=== PATIENT | female | born 1955 | race African-American/Black ===

== ENCOUNTER 2019-02-12 15:10 | Emergency (ER) | payer MEDICARE, MEDICAID ==
[2019-02-12 16:39] LABS: #Eosinphils 0.2 thou/uL (0.0-0.7); #Lymphocytes 1.8 thou/uL (1.20-3.40); #Monocytes 0.4 thou/uL (0.11-0.59); #Neutrophils 3.3 thou/uL (1.40-6.50); %Basophils 0.3 % (0.0-1.0); %Monocytes 7.1 % (0.0-10.0); %Neutrophils 57.7 % (42.0-75.0); Hemoglobin 14.1 g/dL (12.0-16.0); Mean Corpuscular HGB CONC 32.9 g/dL (32.0-36.0); Mean Corpuscular Hemoglobin 31.2 pg (27.0-31.0); Mean Corpuscular Volume 94.7 fL (78.0-98.0); Mean Platelet Volume 8.1 fL (7.4-10.4); Platelet Count 196 thou/uL (130-400); RBC Distribution Width 12.7 % (11.5-14.5); Red Blood Cell (RBC) Count 4.53 mill/uL (4.20-5.40); White Blood Cell (WBC) Count 5.8 thou/uL (4.8-10.8)
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
--- NOTE | 2019-02-12 16:55 | RAD ---
XR Chest 1 View Portable History: [Dyspnea] Comparison: Chest radiograph 2016 Findings: The lungs are clear. No pneumothorax or effusion. Cardiac silhouette and mediastinal contou rs are within normal limits. Impression: No acute intrathoracic abnormality.
[2019-02-12 17:06] LABS: ALT (SGPT) 10 U/L (8-55); AST (SGOT) 13 U/L (5-34); Albumin 3.8 g/dL (3.4-4.8); Alkaline Phosphatase 72 U/L (40-150); Anion Gap 13 mmol/L (10-20); BUN (Urea Nitrogen) 17 mg/dL (9.8-20.1); Bilirubin, Total 0.2 mg/dL (0.2-1.2); CK (CPK) 108 U/L (29-168); Calc. Creatinine Clearance 0 mL/min (70-130); Calcium 9.2 mg/dL (7.8-10.44); Carbon Dioxide 20 mmol/L (23-31); Chloride 111 mmol/L (98-107); Estimated GFR-MDRD 80; Globulin 2.7 g/dL (2.4-3.5); Glucose 104 mg/dL (80-115); Potassium 4.1 mmol/L (3.5-5.1); Protein, Total 6.5 g/dL (6.0-8.3); Sodium 140 mmol/L (136-145)
--- NOTE | 2019-02-16 13:54 | EKG ---
Test Reason : Blood Pressure : / mmHG Vent. Rate : 060 BPM Atrial Rate : 060 BPM P-R Int : 164 ms QRS Dur : 082 ms QT Int : 430 ms P-R-T Axes : 052 -04 055 degrees QTc Int : 430 ms Normal sinus rhythm Normal ECG Confirmed by BRIAN WICK DO ([id number]), editor department EMY COURTNEY ([id number] on 02/16/2019 1:54:02 PM Referred By: Confirmed By:BRIAN WICK DO
== END 2019-02-12 18:14 | disposition home or self-care (01) ==
LOC: ERS 15:10
DX: M54.5 Low back pain (principal); M79.89 Other specified soft tissue disorders; E78.5 Hyperlipidemia, unspecified; I10 Essential (primary) hypertension; E66.9 Obesity, unspecified; Z79.82 Long term (current) use of aspirin; Z79.899 Other long term (current) drug therapy
CPT/HCPCS: 36415; 71045; 72100; 80053; 82550; 83880; 84484; 85025; 93005

== ENCOUNTER 2021-07-30 23:46 | Inpatient (IN) | payer MEDICARE, MEDICAID ==
[2021-07-30] MEDS ORDERED: Dextrose 50% Abboject 50 ML SYRINGE ONE (23:50)
[2021-07-31 00:28] LABS: #Eosinphils 0.1 thou/uL (0.0-0.7); #Lymphocytes 2.3 thou/uL (1.20-3.40); #Monocytes 0.4 thou/uL (0.11-0.59); #Neutrophils 3.1 thou/uL (1.40-6.50); %Basophils 0.2 % (0.0-1.0); %Eosinophils 2.3 % (0.0-10.0); %Lymphocytes 38.3 % (21.0-51.0); %Monocytes 7.3 % (0.0-10.0); %Neutrophils 51.9 % (42.0-75.0); Hemoglobin 13.3 g/dL (12.0-16.0); Mean Corpuscular HGB CONC 32.1 g/dL (32.0-36.0); Mean Corpuscular Hemoglobin 30.9 pg (27.0-31.0); Mean Corpuscular Volume 96.5 fL (78.0-98.0); Mean Platelet Volume 7.7 fL (7.4-10.4); Platelet Count 172 thou/uL (130-400); RBC Distribution Width 13.8 % (11.5-14.5); Red Blood Cell (RBC) Count 4.29 mill/uL (4.20-5.40)
[2021-07-31 00:42] LABS: ALT (SGPT) 11 U/L (8-55); AST (SGOT) 14 U/L (5-34); Albumin 3.6 g/dL (3.4-4.8); Alkaline Phosphatase 53 U/L (40-110); Anion Gap 12 mmol/L (10-20); BUN (Urea Nitrogen) 10 mg/dL (9.8-20.1); Bilirubin, Total 0.4 mg/dL (0.2-1.2); Calc. Creatinine Clearance 0 mL/min (70-130); Calcium 8.8 mg/dL (7.8-10.44); Carbon Dioxide 21 mmol/L (23-31); Chloride 109 mmol/L (98-107); Globulin 2.5 g/dL (2.4-3.5); Potassium 3.3 mmol/L (3.5-5.1); Protein, Total 6.1 g/dL (5.8-8.1); Sodium 139 mmol/L (136-145)
[2021-07-31 00:55] LABS: Glucose 117 mg/dL (80-115)
[2021-07-31 00:56] LABS: PTT 28.8 sec (22.9-36.1); Prothrombin Time 13.6 sec (12.0-14.7)
[2021-07-31 01:30] LABS: Acetaminophen Less than 6.0 mcg/mL (10.0-30.0); Alcohol Less than 10 mg/dL (Less than 10); Salicylate Less than 8.0 mg/dL (15.0-30.0)
[2021-07-31 01:56] LABS: Magnesium 1.8 mg/dL (1.6-2.6)
[2021-07-31 02:56] LABS: Bilirubin Negative (Negative); Blood, Urine Negative (Negative); Clarity Clear (Clear); Glucose, Urine (Dipstick) Normal (Negative); Ketone, Urine Negative (Negative); Leukocyte Negative Leu/uL (Negative); Nitrite Negative (Negative); Protein, Urine (Dipstick) Negative (Neg-Trace); Specific Gravity, Urine 1.009 (1.002-1.036); Urobilinogen Normal mg/dL (Less than 2); pH, Urine 5.5 (5.0-9.0)
[2021-07-31 03:06] LABS: Amphetamine Not Detected (NotDetected); Barbiturates Screen Not Detected (NotDetected); Benzodiazepine Screen Not Detected (NotDetected); Cocaine Metabolite Screen Detected (NotDetected); Methadone Not Detected (NotDetected); Methamphetamine Not Detected (NotDetected); Opiate Screen Not Detected (NotDetected); Oxycodone Screen Not Detected (NotDetected); Phencyclidine (PCP) Not Detected (NotDetected); THC/Cannabinoid Screen Not Detected (NotDetected); Tricyclic Screen Not Detected (NotDetected)
[2021-07-31 05:04] VITALS: BMI 44.6
[2021-07-31] MEDS ORDERED: Sodium Chloride 0.9% 1,000 ML IV SCH (05:30)
[2021-07-31] MEDS: Potassium Chloride 20 MEQ in Premix Bag 1 BAG IVPB SCH ×2 (06:40→10:28)
[2021-07-31] MEDS ORDERED: Electrolyte Replacement Protocol 1 EACH FS SCH (06:45)
[2021-07-31] MEDS ORDERED: Magnesium 2 GM/50 ML 2 GM in Premix Bag 1 BAG IVPB SCH (07:45)
[2021-07-31 08:22] LABS: Phosphorus 2.8 mg/dL (2.3-4.7)
[2021-07-31] MEDS ORDERED: hydrALAZINE 20 MG/ML VIAL SLOW IVP PRN (09:37)
[2021-07-31] MEDS ORDERED: Aspirin 81 mg Enteric Coated Tablet PO SCH (09:45)
[2021-07-31 17:44] LABS: SARS-CoV-2 PCR by NAA Not Detected (NotDetected)
[2021-07-31] MEDS: Atorvastatin Calcium 40 MG TAB PO SCH (21:44)
[2021-07-31] MEDS: Acetaminophen 325 MG TAB PO PRN (21:44)
[2021-07-31] MEDS ORDERED: Cyclobenzaprine 10 MG TAB PO SCH (22:15)
[2021-07-31 23:06] LABS: #Eosinphils 0.1 thou/uL (0.0-0.7); #Monocytes 0.5 thou/uL (0.11-0.59); #Neutrophils 3.1 thou/uL (1.40-6.50); %Basophils 0.5 % (0.0-1.0); %Eosinophils 2.6 % (0.0-10.0); %Lymphocytes 34.4 % (21.0-51.0); %Monocytes 7.9 % (0.0-10.0); %Neutrophils 54.6 % (42.0-75.0); Hemoglobin 12.4 g/dL (12.0-16.0); Mean Corpuscular HGB CONC 31.8 g/dL (32.0-36.0); Mean Corpuscular Volume 97.2 fL (78.0-98.0); Mean Platelet Volume 7.8 fL (7.4-10.4); Platelet Count 206 thou/uL (130-400); RBC Distribution Width 13.8 % (11.5-14.5); Red Blood Cell (RBC) Count 4.02 mill/uL (4.20-5.40); White Blood Cell (WBC) Count 5.7 thou/uL (4.8-10.8)
[2021-07-31 23:22] LABS: Anion Gap 9 mmol/L (10-20); BUN (Urea Nitrogen) 8 mg/dL (9.8-20.1); Calc. Creatinine Clearance 119 mL/min (70-130); Carbon Dioxide 25 mmol/L (23-31); Chloride 111 mmol/L (98-107); Potassium 3.8 mmol/L (3.5-5.1); Sodium 141 mmol/L (136-145)
[2021-07-31 23:23] LABS: Calcium 8.4 mg/dL (7.8-10.44); Glucose 122 mg/dL (80-115); Magnesium 2.1 mg/dL (1.6-2.6)
[2021-08-01 06:27] LABS: Syphilis Antibody Index 8.76 S/CO (<1.00 Non-Reactive)
[2021-08-01] MEDS: Clopidogrel Bisulfate 75 MG TAB PO SCH (09:11)
[2021-08-01] MEDS: Aspirin 81 mg Enteric Coated Tablet PO SCH (09:11)
[2021-08-01] MEDS: Enoxaparin Sodium 40 MG/0.4 ML SYRINGE SC SCH (09:11)
[2021-08-01] MEDS ORDERED: Magnevist 469MG/ML 20 ML VIAL ONE (09:41)
[2021-08-01] MEDS: Acetaminophen 325 MG TAB PO PRN (11:00)
[2021-08-01 15:28] LABS: Syphilis Antibody INDETERMINATE (Nonreactive)
[2021-08-01 18:03] LABS: ANA Symphony (Qualitative) Negative (Negative); ANA Symphony (Quantitative) 0.1 Ratio (< 0.7 Negative); CCP IgG Antibody 0.7 EliAU/mL (<7 Negative); EliA RAS New Method **** NEW METHOD ****; Rheumatoid Factor IgA Antibody 2.1 IU/mL (<14 Negative); Rheumatoid Factor IgM Antibody Less than 0.5 IU/mL (<3.5 Negative); dsDNA IgG Antibody Less than 0.5 IU/mL (<10 Negative)
[2021-08-01] MEDS: Atorvastatin Calcium 40 MG TAB PO SCH (21:10)
[2021-08-02] MEDS: Enoxaparin Sodium 40 MG/0.4 ML SYRINGE SC SCH (09:53)
[2021-08-02] MEDS: Clopidogrel Bisulfate 75 MG TAB PO SCH (09:53)
[2021-08-02] MEDS: Aspirin 81 mg Enteric Coated Tablet PO SCH (09:53)
[2021-08-02] MEDS ORDERED: Hydrochlorothiazide 25 MG TAB PO SCH (21:00)
[2021-08-02 21:36] VITALS: BP 148/80; TEMP 98.2
[2021-08-03] MEDS ORDERED: Amlodipine 10 MG TAB PO SCH (09:00)
== END 2021-08-02 21:29 | DRG 91 ==
LOC: ERS 23:46 → INTOOBSV 07-31 01:35 → 3SE 07-31 01:35 → OBSVTOIN 08-02 09:55
PROVIDERS: ADMIT Internal Medicine; ATTEND Hospitalist
DX: R47.01 Aphasia (principal); G92 Toxic encephalopathy; F14.121 Cocaine abuse with intoxication with delirium; Z68.41 Body mass index [BMI] 40.0-44.9, adult; T40.5X1A Poisoning by cocaine, accidental (unintentional), initial encounter; E78.5 Hyperlipidemia, unspecified; E66.01 Morbid (severe) obesity due to excess calories; I11.9 Hypertensive heart disease without heart failure; E87.6 Hypokalemia; G47.33 Obstructive sleep apnea (adult) (pediatric); Z86.73 Personal history of transient ischemic attack (TIA), and cerebral infarction without residual deficits; Z59.0 Homelessness; Z79.899 Other long term (current) drug therapy; Z79.82 Long term (current) use of aspirin; Z79.52 Long term (current) use of systemic steroids; Z71.51 Drug abuse counseling and surveillance of drug abuser; Z87.01 Personal history of pneumonia (recurrent)
CPT/HCPCS: 36415; 36416; 70450; 70553; 71045; 80053; 80306; 80307; 81003; 83520; 83735; 84100; 84484; 85025; 85610; 85730; 86038; 86200; 86225; 86593; 86780; 93005; 95819; 95957; 96372; 96374; 96375; 96376; G0378; J0360; J1650; J3475; J3480; J7050; U0003; U0005

== ENCOUNTER 2021-10-31 10:22 | Emergency (ER) | payer MEDICARE, MEDICAID ==
[2021-10-31 11:27] LABS: #Eosinphils 0.1 thou/uL (0.0-0.7); #Lymphocytes 2.1 thou/uL (1.20-3.40); #Monocytes 0.4 thou/uL (0.11-0.59); #Neutrophils 3.7 thou/uL (1.40-6.50); %Basophils 0.3 % (0.0-1.0); %Eosinophils 2.1 % (0.0-10.0); %Lymphocytes 33.2 % (21.0-51.0); %Monocytes 6.4 % (0.0-10.0); Hemoglobin 12.6 g/dL (12.0-16.0); Mean Corpuscular HGB CONC 33.2 g/dL (32.0-36.0); Mean Corpuscular Hemoglobin 31.4 pg (27.0-31.0); Mean Corpuscular Volume 94.7 fL (78.0-98.0); Mean Platelet Volume 7.1 fL (7.4-10.4); Platelet Count 254 thou/uL (130-400); Red Blood Cell (RBC) Count 4.01 mill/uL (4.20-5.40); White Blood Cell (WBC) Count 6.3 thou/uL (4.8-10.8)
[2021-10-31 11:59] LABS: Bilirubin Negative (Negative); Blood, Urine Negative (Negative); Clarity Clear (Clear); Glucose, Urine (Dipstick) Normal (Negative); Ketone, Urine Negative (Negative); Leukocyte Negative Leu/uL (Negative); Nitrite Negative (Negative); Protein, Urine (Dipstick) Negative (Neg-Trace); Specific Gravity, Urine 1.024 (1.002-1.036); Urobilinogen Normal mg/dL (Less than 2); pH, Urine 6.5 (5.0-9.0)
[2021-10-31 12:06] LABS: ALT (SGPT) 26 U/L (8-55); AST (SGOT) 19 U/L (5-34); Albumin 3.6 g/dL (3.4-4.8); Alkaline Phosphatase 65 U/L (40-110); Anion Gap 10 mmol/L (10-20); BUN (Urea Nitrogen) 16 mg/dL (9.8-20.1); Bilirubin, Total 0.6 mg/dL (0.2-1.2); CK (CPK) 225 U/L (29-168); Calc. Creatinine Clearance 0 mL/min (70-130); Calcium 9.1 mg/dL (7.8-10.44); Carbon Dioxide 25 mmol/L (23-31); Chloride 108 mmol/L (98-107); Globulin 2.1 g/dL (2.4-3.5); Glucose 81 mg/dL (80-115); Potassium 4.7 mmol/L (3.5-5.1); Protein, Total 5.7 g/dL (5.8-8.1); Sodium 138 mmol/L (136-145)
[2021-10-31 12:20] LABS: Lipase 21 U/L (8-78)
[2021-10-31] MEDS ORDERED: Aspirin Chewable 81 MG TAB ONE ×2 (12:53→12:54)
[2021-10-31 23:11] LABS: SARS-CoV-2 PCR by NAA Not Detected (NotDetected)
== END 2021-10-31 13:08 | disposition left against medical advice (07) ==
LOC: ERS 10:22
DX: G45.9 Transient cerebral ischemic attack, unspecified (principal); F43.9 Reaction to severe stress, unspecified; I10 Essential (primary) hypertension; E78.00 Pure hypercholesterolemia, unspecified; F17.200 Nicotine dependence, unspecified, uncomplicated; Z86.73 Personal history of transient ischemic attack (TIA), and cerebral infarction without residual deficits; Z20.822 Contact with and (suspected) exposure to COVID-19
CPT/HCPCS: 51701; 70450; 71045; 80053; 81003; 82550; 83690; 83880; 84484; 85025; 93005; 99291; U0003; U0005

== ENCOUNTER 2021-11-25 13:41 | Inpatient (IN) | payer MEDICAID, MEDICARE, OTHER ==
[2021-11-25 14:11] LABS: #Eosinphils 0.1 thou/uL (0.0-0.7); #Lymphocytes 0.5 thou/uL (1.20-3.40); #Monocytes 0.5 thou/uL (0.11-0.59); #Neutrophils 4.8 thou/uL (1.40-6.50); %Basophils 0.4 % (0.0-1.0); %Eosinophils 1.4 % (0.0-10.0); %Lymphocytes 8.8 % (21.0-51.0); %Monocytes 8.4 % (0.0-10.0); %Neutrophils 80.9 % (42.0-75.0); Hemoglobin 11.9 g/dL (12.0-16.0); Mean Corpuscular HGB CONC 32.3 g/dL (32.0-36.0); Mean Corpuscular Hemoglobin 30.2 pg (27.0-31.0); Mean Corpuscular Volume 93.5 fL (78.0-98.0); Platelet Count 230 thou/uL (130-400); RBC Distribution Width 12.5 % (11.5-14.5); Red Blood Cell (RBC) Count 3.94 mill/uL (4.20-5.40)
[2021-11-25 14:21] LABS: Prothrombin Time 13.3 sec (12.0-14.7)
[2021-11-25 14:32] LABS: ALT (SGPT) 15 U/L (8-55); AST (SGOT) 17 U/L (5-34); Albumin 4.4 g/dL (3.4-4.8); Alkaline Phosphatase 76 U/L (40-110); Anion Gap 15 mmol/L (10-20); BUN (Urea Nitrogen) 14 mg/dL (9.8-20.1); Bilirubin, Total 0.4 mg/dL (0.2-1.2); CK (CPK) 146 U/L (29-168); Calc. Creatinine Clearance 0 mL/min (70-130); Calcium 9.8 mg/dL (7.8-10.44); Carbon Dioxide 22 mmol/L (23-31); Chloride 106 mmol/L (98-107); Globulin 2.6 g/dL (2.4-3.5); Glucose 88 mg/dL (80-115); Potassium 4.1 mmol/L (3.5-5.1); Sodium 139 mmol/L (136-145)
[2021-11-25] MEDS ORDERED: Aspirin 325 MG TAB ONE (16:01)
[2021-11-25] MEDS ORDERED: Labetalol HCl 100 MG/20 ML VIAL ONE (16:39)
[2021-11-25] MEDS ORDERED: Senokot S 8.6-50 MG TAB PO PRN (18:16)
[2021-11-25] MEDS ORDERED: Ondansetron PF 4 MG/2 ML Vial IVP PRN (18:16)
[2021-11-25] MEDS ORDERED: Acetaminophen 650 MG Suppository PR PRN (18:16)
[2021-11-25] MEDS ORDERED: Enoxaparin Sodium 40 MG/0.4 ML SYRINGE SC SCH (18:30)
[2021-11-25] MEDS ORDERED: Melatonin 3 MG TAB PO PRN (18:46)
[2021-11-25] MEDS ORDERED: Albuterol 200 PUFF (6.7GM INHALER) INH PRN (19:00)
[2021-11-25] MEDS ORDERED: Labetalol HCl 100 MG/20 ML VIAL SLOW IVP PRN (19:24)
[2021-11-25] MEDS ORDERED: Enoxaparin Sodium 40 MG/0.4 ML SYRINGE ONE (20:42)
[2021-11-25] MEDS ORDERED: Acetaminophen 325 MG TAB ONE (20:45)
[2021-11-25] MEDS: Acetaminophen 325 MG TAB PO PRN (20:49)
[2021-11-25] MEDS ORDERED: Atorvastatin Calcium 40 MG TAB PO SCH (21:00)
[2021-11-25] MEDS ORDERED: Famotidine/PF 20 mg/2ml Vial ONE (21:42)
[2021-11-25] MEDS ORDERED: Ibuprofen 800 MG TAB PO SCH (21:45)
[2021-11-25] MEDS: Famotidine/PF 20 mg/2ml Vial SLOW IVP SCH (21:46)
[2021-11-25] MEDS ORDERED: Ibuprofen 800 MG TAB ONE (22:30)
[2021-11-26] MEDS: Acetaminophen 325 MG TAB PO PRN ×2 (02:25→10:44)
[2021-11-26] MEDS: Hydrochlorothiazide 25 MG TAB PO SCH ×2 (02:27→10:43)
[2021-11-26 05:33] LABS: #Lymphocytes 0.6 thou/uL (1.20-3.40); #Monocytes 0.5 thou/uL (0.11-0.59); #Neutrophils 2.5 thou/uL (1.40-6.50); %Basophils 0.2 % (0.0-1.0); %Eosinophils 1.1 % (0.0-10.0); %Lymphocytes 16.4 % (21.0-51.0); %Monocytes 14.1 % (0.0-10.0); %Neutrophils 68.2 % (42.0-75.0); Hemoglobin 11.3 g/dL (12.0-16.0); Mean Corpuscular HGB CONC 32.2 g/dL (32.0-36.0); Mean Corpuscular Hemoglobin 30.1 pg (27.0-31.0); Mean Corpuscular Volume 93.7 fL (78.0-98.0); Platelet Count 189 thou/uL (130-400); RBC Distribution Width 12.5 % (11.5-14.5); Red Blood Cell (RBC) Count 3.74 mill/uL (4.20-5.40); White Blood Cell (WBC) Count 3.7 thou/uL (4.8-10.8)
[2021-11-26 05:54] LABS: ALT (SGPT) 15 U/L (8-55); AST (SGOT) 13 U/L (5-34); Albumin 3.7 g/dL (3.4-4.8); Alkaline Phosphatase 58 U/L (40-110); Anion Gap 15 mmol/L (10-20); BUN (Urea Nitrogen) 10 mg/dL (9.8-20.1); Bilirubin, Total 0.3 mg/dL (0.2-1.2); Calc. Creatinine Clearance 0 mL/min (70-130); Calcium 9.2 mg/dL (7.8-10.44); Carbon Dioxide 22 mmol/L (23-31); Cardiac Risk 3.1 (Less than 4.5); Chloride 106 mmol/L (98-107); Cholesterol 171 mg/dl (< 200 Desired); Globulin 2.7 g/dL (2.4-3.5); Glucose 84 mg/dL (80-115); HDL Cholesterol 55 mg/dL (>60 Neg Risk); LDL Cholesterol, Calculated 107 mg/dL; Potassium 3.6 mmol/L (3.5-5.1); Protein, Total 6.4 g/dL (5.8-8.1); Sodium 139 mmol/L (136-145); Triglycerides 45 mg/dL (Less than 150)
[2021-11-26] MEDS ORDERED: Lisinopril 20 MG TAB PO SCH (09:00)
[2021-11-26] MEDS ORDERED: Aspirin 81 mg Enteric Coated Tablet PO SCH (09:00)
[2021-11-26] MEDS ORDERED: Enoxaparin Sodium 40 MG/0.4 ML SYRINGE SC SCH (09:00)
[2021-11-26] MEDS ORDERED: Clopidogrel Bisulfate 75 MG TAB PO SCH (09:00)
[2021-11-26] MEDS: Famotidine/PF 20 mg/2ml Vial SLOW IVP SCH (10:45)
[2021-11-26 11:00] LABS: Hemoglobin A1c 5.2 % (4.0-6.0)
[2021-11-26 11:56] LABS: SARS-CoV-2 PCR by NAA DETECTED (NotDetected)
[2021-11-26 15:31] LABS: SARS-CoV-2 PCR by NAA DETECTED (NotDetected)
[2021-11-26 17:21] VITALS: BP 141/67; TEMP 97.8
[2021-11-28] MEDS ORDERED: FLU VACC QS2021-22(6MOS UP)/PF 60 MCG/0.5 ML SYRINGE IM ONE (09:00)
== END 2021-11-26 18:05 | DRG 69 ==
LOC: ERS 13:41 → ERHOLD 17:58 → 2NO 23:54 → OBSVTOIN 11-26 15:53
PROVIDERS: ADMIT Family Medicine; ATTEND Family Medicine
PROC: 4A10X4Z Monitoring of Central Nervous Electrical Activity, External Approach (ICD-10-PCS; principal; 2021-11-26)
DX: G45.9 Transient cerebral ischemic attack, unspecified (principal); U07.1 COVID-19; I16.1 Hypertensive emergency; R47.01 Aphasia; E78.5 Hyperlipidemia, unspecified; F31.9 Bipolar disorder, unspecified; Z96.653 Presence of artificial knee joint, bilateral; D64.9 Anemia, unspecified; E78.00 Pure hypercholesterolemia, unspecified; M19.90 Unspecified osteoarthritis, unspecified site; G47.33 Obstructive sleep apnea (adult) (pediatric); Z86.73 Personal history of transient ischemic attack (TIA), and cerebral infarction without residual deficits; Z79.51 Long term (current) use of inhaled steroids; Z79.82 Long term (current) use of aspirin; Z79.899 Other long term (current) drug therapy; Z90.710 Acquired absence of both cervix and uterus
CPT/HCPCS: 36415; 70450; 70551; 71045; 80053; 80061; 82550; 83036; 84484; 85025; 85610; 85730; 93005; 94760; 95816; 95819; 95957; 96372; 96375; 96376; G0378; J1650; S0028; U0003; U0005

== ENCOUNTER 2022-02-06 13:47 | Emergency (ER) | payer MEDICARE, MEDICAID ==
[2022-02-06 15:23] LABS: #Eosinphils 0.1 thou/uL (0.0-0.7); #Lymphocytes 1.5 thou/uL (1.20-3.40); #Monocytes 0.4 thou/uL (0.11-0.59); #Neutrophils 2.9 thou/uL (1.40-6.50); %Basophils 0.3 % (0.0-1.0); %Eosinophils 2.5 % (0.0-10.0); %Lymphocytes 30.4 % (21.0-51.0); %Monocytes 7.5 % (0.0-10.0); %Neutrophils 59.3 % (42.0-75.0); Hemoglobin 11.6 g/dL (12.0-16.0); Mean Corpuscular HGB CONC 30.8 g/dL (32.0-36.0); Mean Corpuscular Hemoglobin 29.6 pg (27.0-31.0); Mean Corpuscular Volume 96.1 fL (78.0-98.0); Platelet Count 244 thou/uL (130-400); RBC Distribution Width 12.6 % (11.5-14.5); Red Blood Cell (RBC) Count 3.92 mill/uL (4.20-5.40); White Blood Cell (WBC) Count 4.9 thou/uL (4.8-10.8)
[2022-02-06 15:45] LABS: ALT (SGPT) 46 U/L (8-55); AST (SGOT) 24 U/L (5-34); Alkaline Phosphatase 102 U/L (40-110); Anion Gap 14 mmol/L (10-20); BUN (Urea Nitrogen) 13 mg/dL (9.8-20.1); Bilirubin, Total 0.4 mg/dL (0.2-1.2); Calc. Creatinine Clearance 0 mL/min (70-130); Calcium 9.4 mg/dL (7.8-10.44); Carbon Dioxide 25 mmol/L (23-31); Chloride 106 mmol/L (98-107); Globulin 2.7 g/dL (2.4-3.5); Glucose 78 mg/dL (80-115); Potassium 4.5 mmol/L (3.5-5.1); Protein, Total 6.7 g/dL (5.8-8.1); Sodium 140 mmol/L (136-145)
== END 2022-02-06 15:53 | disposition home or self-care (01) ==
LOC: ERS 13:47
DX: F41.1 Generalized anxiety disorder (principal); I10 Essential (primary) hypertension; E78.00 Pure hypercholesterolemia, unspecified; Z79.899 Other long term (current) drug therapy; Z86.73 Personal history of transient ischemic attack (TIA), and cerebral infarction without residual deficits; F17.200 Nicotine dependence, unspecified, uncomplicated
CPT/HCPCS: 36415; 70450; 80053; 85025; 93005

== ENCOUNTER 2022-04-04 12:38 | Emergency (ER) | payer MEDICARE, MEDICAID ==
[~2022-04-04 12:38] MED LIST: Iopamidol-370 76% 500 ML 1 ML ONE
[2022-04-04] MEDS ORDERED: Aspirin Chewable 81 MG TAB ONE (13:25)
[2022-04-04 13:50] LABS: Bilirubin Negative (Negative); Blood, Urine Negative (Negative); Clarity Clear (Clear); Glucose, Urine (Dipstick) Normal (Negative); Ketone, Urine Negative (Negative); Leukocyte Negative Leu/uL (Negative); Nitrite Negative (Negative); Protein, Urine (Dipstick) Negative (Neg-Trace); Specific Gravity, Urine 1.019 (1.002-1.036); Urobilinogen Normal mg/dL (Less than 2); pH, Urine 7.5 (5.0-9.0)
[2022-04-04 13:56] LABS: Hemoglobin 11.7 g/dL (12.0-16.0); Mean Corpuscular HGB CONC 32.4 g/dL (32.0-36.0); Mean Corpuscular Hemoglobin 30.8 pg (27.0-31.0); Mean Platelet Volume 8.4 fL (7.4-10.4); Platelet Count 124 thou/uL (130-400); RBC Distribution Width 12.8 % (11.5-14.5); Red Blood Cell (RBC) Count 3.81 mill/uL (4.20-5.40); White Blood Cell (WBC) Count 3.9 thou/uL (4.8-10.8)
[2022-04-04 13:57] LABS: Amphetamine Not Detected (NotDetected); Barbiturates Screen Not Detected (NotDetected); Benzodiazepine Screen Not Detected (NotDetected); Cocaine Metabolite Screen Not Detected (NotDetected); Methadone Not Detected (NotDetected); Methamphetamine Not Detected (NotDetected); Opiate Screen Not Detected (NotDetected); Oxycodone Screen Not Detected (NotDetected); Phencyclidine (PCP) Not Detected (NotDetected); THC/Cannabinoid Screen Not Detected (NotDetected); Tricyclic Screen Not Detected (NotDetected)
[2022-04-04 14:13] LABS: Eosinophils 2 % (0-10); Lymphocytes 50 % (21-51); MDiff Complete? YES; Monocytes 7 % (0-10); Neutrophil 40 % (42-75); Platelet Morphology Comment Appears Decreased; RBC Morphology Normal
[2022-04-04 14:15] LABS: Acetaminophen Less than 10.0 mcg/mL (10.0-30.0); Alcohol Less than 10 mg/dL (Less than 10); CK (CPK) 179 U/L (29-168); Salicylate Less than 8.0 mg/dL (15.0-30.0)
[2022-04-04 14:16] LABS: ALT (SGPT) 19 U/L (8-55); AST (SGOT) 18 U/L (5-34); Alkaline Phosphatase 76 U/L (40-110); Anion Gap 11 mmol/L (10-20); BUN (Urea Nitrogen) 12 mg/dL (9.8-20.1); Bilirubin, Total 0.4 mg/dL (0.2-1.2); Calc. Creatinine Clearance 0 mL/min (70-130); Calcium 9.3 mg/dL (7.8-10.44); Carbon Dioxide 27 mmol/L (23-31); Chloride 107 mmol/L (98-107); Globulin 2.8 g/dL (2.4-3.5); Glucose 95 mg/dL (80-115); Magnesium 1.8 mg/dL (1.6-2.6); Potassium 4.3 mmol/L (3.5-5.1); Protein, Total 6.8 g/dL (5.8-8.1); Sodium 141 mmol/L (136-145)
== END 2022-04-04 18:50 | disposition home or self-care (01) ==
LOC: ERS 12:38
DX: R47.1 Dysarthria and anarthria (principal); I10 Essential (primary) hypertension; E78.00 Pure hypercholesterolemia, unspecified; F17.200 Nicotine dependence, unspecified, uncomplicated; Z79.899 Other long term (current) drug therapy; Z86.73 Personal history of transient ischemic attack (TIA), and cerebral infarction without residual deficits
CPT/HCPCS: 36415; 70496; 70498; 71045; 80053; 80306; 80307; 81003; 82550; 83735; 84443; 84484; 85025; 93005; Q9967

== ENCOUNTER 2022-05-06 20:19 | Emergency (ER) | payer OTHER ==
[2022-05-06] MEDS ORDERED: Lorazepam 2 MG/ML VIAL ONE (20:29)
[2022-05-06 20:43] LABS: #Eosinphils 0.2 thou/uL (0.0-0.7); #Lymphocytes 1.8 thou/uL (1.20-3.40); #Monocytes 0.6 thou/uL (0.11-0.59); #Neutrophils 3.6 thou/uL (1.40-6.50); %Basophils 0.3 % (0.0-1.0); %Eosinophils 2.7 % (0.0-10.0); %Lymphocytes 28.8 % (21.0-51.0); %Monocytes 9.5 % (0.0-10.0); %Neutrophils 58.7 % (42.0-75.0); Hemoglobin 11.2 g/dL (12.0-16.0); Mean Corpuscular Volume 96.8 fL (78.0-98.0); Mean Platelet Volume 7.3 fL (7.4-10.4); Platelet Count 222 thou/uL (130-400); RBC Distribution Width 12.6 % (11.5-14.5); Red Blood Cell (RBC) Count 3.74 mill/uL (4.20-5.40); White Blood Cell (WBC) Count 6.2 thou/uL (4.8-10.8)
[2022-05-06 21:02] LABS: ALT (SGPT) 30 U/L (8-55); AST (SGOT) 18 U/L (5-34); Albumin 4.2 g/dL (3.4-4.8); Alkaline Phosphatase 103 U/L (40-110); Anion Gap 20 mmol/L (10-20); BUN (Urea Nitrogen) 17 mg/dL (9.8-20.1); Bilirubin, Total 0.3 mg/dL (0.2-1.2); Calc. Creatinine Clearance 0 mL/min (70-130); Calcium 9.3 mg/dL (7.8-10.44); Carbon Dioxide 19 mmol/L (23-31); Chloride 107 mmol/L (98-107); Estimated GFR 70; Globulin 3.2 g/dL (2.4-3.5); Glucose 103 mg/dL (80-115); Potassium 3.4 mmol/L (3.5-5.1); Protein, Total 7.4 g/dL (5.8-8.1); Sodium 143 mmol/L (136-145)
[2022-05-06 21:55] LABS: Bacteria/HPF None Seen HPF (None Seen); Bilirubin Negative (Negative); Blood, Urine Negative (Negative); Clarity Clear (Clear); Glucose, Urine (Dipstick) Normal (Negative); Ketone, Urine Negative (Negative); Leukocyte 25 Leu/uL (Negative); Nitrite Negative (Negative); Protein, Urine (Dipstick) Negative (Neg-Trace); RBC/HPF 0-3 HPF (0-3); Specific Gravity, Urine 1.026 (1.002-1.036); Squamous Epithelial 0-3 HPF (0-3); Urobilinogen Normal mg/dL (Less than 2); WBC/HPF 0-3 HPF (0-3)
[2022-05-06 22:03] LABS: Amphetamine Not Detected (NotDetected); Barbiturates Screen Not Detected (NotDetected); Benzodiazepine Screen Not Detected (NotDetected); Cocaine Metabolite Screen Not Detected (NotDetected); Methadone Not Detected (NotDetected); Methamphetamine Not Detected (NotDetected); Opiate Screen Not Detected (NotDetected); Oxycodone Screen Not Detected (NotDetected); Phencyclidine (PCP) Not Detected (NotDetected); THC/Cannabinoid Screen Not Detected (NotDetected); Tricyclic Screen Not Detected (NotDetected)
== END 2022-05-06 22:17 ==
LOC: ERS 20:19
DX: R41.82 Altered mental status, unspecified (principal); I10 Essential (primary) hypertension; E78.00 Pure hypercholesterolemia, unspecified; F17.200 Nicotine dependence, unspecified, uncomplicated; Z86.73 Personal history of transient ischemic attack (TIA), and cerebral infarction without residual deficits
CPT/HCPCS: 36415; 36416; 51701; 70450; 80053; 80306; 81003; 81015; 85025; 93005; 96372; J2060

== ENCOUNTER 2022-05-07 12:10 | Observation (INO) | payer MEDICARE, OTHER ==
[~2022-05-07 12:10] MED LIST changes: +ISOVUE-370 76%-LOCM 1 ML ONE; -Iopamidol-370 76% 500 ML 1 ML ONE
[2022-05-07 13:28] LABS: Bacteria/HPF None Seen HPF (None Seen); Bilirubin Negative (Negative); Blood, Urine Negative (Negative); Clarity Clear (Clear); Glucose, Urine (Dipstick) Normal (Negative); Ketone, Urine Negative (Negative); Leukocyte 75 Leu/uL (Negative); Nitrite Negative (Negative); Protein, Urine (Dipstick) Negative (Neg-Trace); RBC/HPF 0-3 HPF (0-3); Specific Gravity, Urine 1.023 (1.002-1.036); Squamous Epithelial 0-3 HPF (0-3); Urobilinogen Normal mg/dL (Less than 2); WBC/HPF 0-3 HPF (0-3)
[2022-05-07 14:16] LABS: #Eosinphils 0.2 thou/uL (0.0-0.7); #Lymphocytes 1.4 thou/uL (1.20-3.40); #Monocytes 0.3 thou/uL (0.11-0.59); #Neutrophils 2.5 thou/uL (1.40-6.50); %Basophils 0.3 % (0.0-1.0); %Eosinophils 4.2 % (0.0-10.0); %Lymphocytes 31.1 % (21.0-51.0); %Monocytes 7.3 % (0.0-10.0); %Neutrophils 57.1 % (42.0-75.0); Hemoglobin 11.4 g/dL (12.0-16.0); Mean Corpuscular HGB CONC 31.7 g/dL (32.0-36.0); Mean Corpuscular Hemoglobin 30.3 pg (27.0-31.0); Mean Corpuscular Volume 95.5 fL (78.0-98.0); Mean Platelet Volume 7.4 fL (7.4-10.4); Platelet Count 207 thou/uL (130-400); RBC Distribution Width 12.6 % (11.5-14.5); Red Blood Cell (RBC) Count 3.77 mill/uL (4.20-5.40); White Blood Cell (WBC) Count 4.4 thou/uL (4.8-10.8)
[2022-05-07 14:34] LABS: Prothrombin Time 13.3 sec (12.0-14.7)
[2022-05-07 14:45] LABS: ALT (SGPT) 29 U/L (8-55); AST (SGOT) 19 U/L (5-34); Albumin 4.1 g/dL (3.4-4.8); Alkaline Phosphatase 71 U/L (40-110); Anion Gap 14 mmol/L (10-20); BUN (Urea Nitrogen) 13 mg/dL (9.8-20.1); Bilirubin, Total 0.8 mg/dL (0.2-1.2); Calc. Creatinine Clearance 0 mL/min (70-130); Calcium 9.7 mg/dL (7.8-10.44); Carbon Dioxide 24 mmol/L (23-31); Chloride 107 mmol/L (98-107); Estimated GFR 85; Glucose 92 mg/dL (80-115); Potassium 3.9 mmol/L (3.5-5.1); Protein, Total 7.1 g/dL (5.8-8.1); Sodium 141 mmol/L (136-145)
[2022-05-07] MEDS ORDERED: Ondansetron ODT 4 MG TAB PO PRN (15:55)
[2022-05-07] MEDS ORDERED: Senokot S 8.6-50 MG TAB PO PRN (15:55)
[2022-05-07] MEDS ORDERED: HYDROcodone/Acetaminophen 5/325 mg Tablet PO PRN (15:55)
[2022-05-07 19:27] VITALS: BMI 45.8
[2022-05-07] MEDS: Famotidine 20 MG TAB PO SCH (19:29)
[2022-05-08 05:37] LABS: #Eosinphils 0.1 thou/uL (0.0-0.7); #Lymphocytes 1.1 thou/uL (1.20-3.40); #Monocytes 0.3 thou/uL (0.11-0.59); %Basophils 0.1 % (0.0-1.0); %Lymphocytes 31.4 % (21.0-51.0); %Neutrophils 57.5 % (42.0-75.0); Mean Corpuscular HGB CONC 33.4 g/dL (32.0-36.0); Mean Corpuscular Hemoglobin 31.2 pg (27.0-31.0); Mean Corpuscular Volume 93.5 fL (78.0-98.0); Platelet Count 194 thou/uL (130-400); RBC Distribution Width 12.4 % (11.5-14.5); Red Blood Cell (RBC) Count 3.54 mill/uL (4.20-5.40); White Blood Cell (WBC) Count 3.6 thou/uL (4.8-10.8)
[2022-05-08 06:00] LABS: Anion Gap 13 mmol/L (10-20); BUN (Urea Nitrogen) 12 mg/dL (9.8-20.1); Calc. Creatinine Clearance 155 mL/min (70-130); Calcium 9.1 mg/dL (7.8-10.44); Carbon Dioxide 21 mmol/L (23-31); Chloride 108 mmol/L (98-107); Estimated GFR 97; Glucose 85 mg/dL (80-115); Potassium 3.7 mmol/L (3.5-5.1); Sodium 138 mmol/L (136-145)
[2022-05-08] MEDS ORDERED: Aspirin 81 mg Enteric Coated Tablet PO SCH (09:00)
[2022-05-08] MEDS ORDERED: Clopidogrel Bisulfate 75 MG TAB PO SCH (09:00)
[2022-05-08] MEDS ORDERED: Hydrochlorothiazide 25 MG TAB PO SCH (09:00)
[2022-05-08] MEDS ORDERED: Lisinopril 20 MG TAB PO SCH (09:00)
[2022-05-08] MEDS ORDERED: Enoxaparin Sodium 40 MG/0.4 ML SYRINGE SC SCH (09:00)
[2022-05-08] MEDS: Famotidine 20 MG TAB PO SCH (11:44)
[2022-05-08 12:26] VITALS: BP 132/75; TEMP 97.4
[2022-05-08] MEDS ORDERED: Atorvastatin Calcium 40 MG TAB PO SCH (21:00)
== END 2022-05-08 13:37 ==
LOC: ERS 12:10 → NEURO 15:55 → ERS 16:14
PROVIDERS: ADMIT Internal Medicine; ATTEND Internal Medicine
DX: R47.1 Dysarthria and anarthria (principal); R41.82 Altered mental status, unspecified; I10 Essential (primary) hypertension; E78.2 Mixed hyperlipidemia; G47.33 Obstructive sleep apnea (adult) (pediatric); F14.11 Cocaine abuse, in remission; M19.90 Unspecified osteoarthritis, unspecified site; F17.200 Nicotine dependence, unspecified, uncomplicated; Z86.73 Personal history of transient ischemic attack (TIA), and cerebral infarction without residual deficits; Z20.822 Contact with and (suspected) exposure to COVID-19
CPT/HCPCS: 36415; 36416; 70450; 70496; 70551; 71045; 80048; 80053; 81003; 83605; 84484; 85025; 85610; 93005; 96372; G0378; J1650; Q9966; U0003; U0005

== ENCOUNTER 2023-01-10 17:13 | Inpatient (IN) | payer MEDICARE, MEDICAID ==
[2023-01-10 17:57] LABS: #Eosinphils 0.1 thou/uL (0.0-0.7); #Lymphocytes 1.7 thou/uL (1.20-3.40); #Monocytes 0.4 thou/uL (0.11-0.59); #Neutrophils 3.6 thou/uL (1.40-6.50); %Basophils 0.3 % (0.0-1.0); %Eosinophils 1.5 % (0.0-10.0); %Lymphocytes 29.6 % (21.0-51.0); %Monocytes 6.8 % (0.0-10.0); %Neutrophils 61.9 % (42.0-75.0); Hemoglobin 11.6 g/dL (12.0-16.0); Mean Corpuscular Hemoglobin 30.7 pg (27.0-31.0); Mean Corpuscular Volume 93.1 fl (78.0-98.0); Mean Platelet Volume 7.9 fL (7.4-10.4); Platelet Count 213 10x3/uL (130-400); RBC Distribution Width 13.6 % (11.5-14.5); Red Blood Cell (RBC) Count 3.77 mill/uL (4.20-5.40); White Blood Cell (WBC) Count 5.9 10x3/uL (4.8-10.8)
[2023-01-10 18:15] LABS: Acetaminophen Less than 10.0 mcg/mL (10.0-30.0); Alcohol Less than 10 mg/dL (Less than 10); Salicylate Less than 8.0 mg/dL (15.0-30.0)
[2023-01-10 18:32] LABS: Bacteria/HPF 4+ HPF (None Seen); Bilirubin Negative (Negative); Blood, Urine Trace (Negative); Clarity Turbid (Clear); Glucose, Urine (Dipstick) Normal (Negative); Ketone, Urine Trace mg/dL (Negative); Leukocyte 500 Leu/uL (Negative); Nitrite 2+ (Negative); Protein, Urine (Dipstick) 50 mg/dL (Neg-Trace); Specific Gravity, Urine 1.036 (1.002-1.036); Squamous Epithelial None Seen HPF (0-3); WBC/HPF Greater than 50 HPF (0-3)
[2023-01-10 18:36] LABS: Amphetamine Detected (NotDetected); Barbiturates Screen Not Detected (NotDetected); Benzodiazepine Screen Not Detected (NotDetected); Cocaine Metabolite Screen Detected (NotDetected); Methadone Not Detected (NotDetected); Methamphetamine Detected (NotDetected); Opiate Screen Not Detected (NotDetected); Oxycodone Screen Not Detected (NotDetected); Phencyclidine (PCP) Not Detected (NotDetected); THC/Cannabinoid Screen Not Detected (NotDetected); Tricyclic Screen Not Detected (NotDetected)
[2023-01-10 18:41] LABS: Actual Bicarbonate (HCO3v) 25 mEq/L (22-28); Base Excess 0.1 mEq/L (-2.0 to +3.0); Calcium, Ionized (venous) 1.12 mmol/L (1.16-1.32); Chloride (VBG) 111 mmol/L (98-106); Hemoglobin (Hb) 12.3 g/dL (11.7-16.1); Potassium (VBG) 3.33 mmol/L (3.70-5.30); Sodium 143.3 mmol/L (133-146); pH (venous) 7.41 (7.32-7.43)
[2023-01-10 18:54] LABS: ALT (SGPT) 13 U/L (8-55); AST (SGOT) 16 U/L (5-34); Albumin 3.9 g/dL (3.4-4.8); Alkaline Phosphatase 76 U/L (40-110); Anion Gap 9 mmol/L (10-20); BUN (Urea Nitrogen) 14 mg/dL (9.8-20.1); Bilirubin, Total 0.3 mg/dL (0.2-1.2); Calc. Creatinine Clearance 0 mL/min (70-130); Calcium 8.9 mg/dL (7.8-10.44); Carbon Dioxide 24 mmol/L (23-31); Chloride 112 mmol/L (98-107); Estimated GFR 83; Globulin 2.7 g/dL (2.4-3.5); Glucose 94 mg/dL (80-115); Potassium 3.3 mmol/L (3.5-5.1); Protein, Total 6.6 g/dL (5.8-8.1); Sodium 142 mmol/L (136-145)
[2023-01-10] MEDS ORDERED: cefTRIAXone\\ROCEPHIN 1 GM VIAL ONE (21:53)
[2023-01-10] MEDS ORDERED: Lorazepam 2 MG/ML VIAL SLOW IVP PRN (22:24)
[2023-01-10] MEDS ORDERED: Potassium Chloride 20 MEQ in Premix Bag 1 BAG IVPB SCH (22:30)
[2023-01-10] MEDS ORDERED: Potassium Chloride 20 MEQ/100 ML PREMIX BAG ONE (23:03)
[2023-01-10 23:14] LABS: SARS-CoV-2 NAA Rapid Test Not Detected (NotDetected)
[2023-01-11 00:52] VITALS: BMI 48.0
[2023-01-11 05:36] LABS: #Eosinphils 0.1 thou/uL (0.0-0.7); #Lymphocytes 1.7 thou/uL (1.20-3.40); #Monocytes 0.4 thou/uL (0.11-0.59); #Neutrophils 2.1 thou/uL (1.40-6.50); %Basophils 0.1 % (0.0-1.0); %Eosinophils 2.3 % (0.0-10.0); %Lymphocytes 39.8 % (21.0-51.0); %Monocytes 9.3 % (0.0-10.0); %Neutrophils 48.5 % (42.0-75.0); Hemoglobin 11.9 g/dL (12.0-16.0); Mean Corpuscular HGB CONC 32.4 g/dL (32.0-36.0); Mean Corpuscular Hemoglobin 30.6 pg (27.0-31.0); Mean Corpuscular Volume 94.5 fl (78.0-98.0); Mean Platelet Volume 7.7 fL (7.4-10.4); Platelet Count 199 10x3/uL (130-400); RBC Distribution Width 13.7 % (11.5-14.5); Red Blood Cell (RBC) Count 3.88 mill/uL (4.20-5.40); White Blood Cell (WBC) Count 4.3 10x3/uL (4.8-10.8)
[2023-01-11 06:08] LABS: Anion Gap 14 mmol/L (10-20); BUN (Urea Nitrogen) 9 mg/dL (9.8-20.1); Calc. Creatinine Clearance 163 mL/min (70-130); Calcium 8.7 mg/dL (7.8-10.44); Carbon Dioxide 18 mmol/L (23-31); Chloride 114 mmol/L (98-107); Estimated GFR 96; Glucose 87 mg/dL (80-115); Potassium 3.7 mmol/L (3.5-5.1); Sodium 142 mmol/L (136-145)
[2023-01-11] MEDS ORDERED: Aspirin 81 mg Enteric Coated Tablet PO SCH (09:45)
[2023-01-11] MEDS ORDERED: Clopidogrel Bisulfate 75 MG TAB PO SCH (13:45)
[2023-01-11] MEDS: cefTRIAXone\\ROCEPHIN 2 GM in Sodium Chloride 0.9% 100 ML IVPB SCH (17:01)
[2023-01-11] MEDS ORDERED: Atorvastatin Calcium 40 MG TAB PO SCH (21:00)
[2023-01-11] MEDS: Atorvastatin Calcium 40 MG TAB PO SCH (21:39)
[2023-01-12 05:32] LABS: #Lymphocytes 1.2 thou/uL (1.20-3.40); #Monocytes 0.3 thou/uL (0.11-0.59); %Basophils 0.7 % (0.0-1.0); %Eosinophils 0.9 % (0.0-10.0); %Lymphocytes 27.4 % (21.0-51.0); %Monocytes 5.9 % (0.0-10.0); %Neutrophils 65.2 % (42.0-75.0); Hemoglobin 12.1 g/dL (12.0-16.0); Mean Corpuscular HGB CONC 32.3 g/dL (32.0-36.0); Mean Corpuscular Hemoglobin 30.2 pg (27.0-31.0); Mean Corpuscular Volume 93.5 fl (78.0-98.0); Mean Platelet Volume 7.7 fL (7.4-10.4); Platelet Count 204 10x3/uL (130-400); RBC Distribution Width 13.6 % (11.5-14.5); White Blood Cell (WBC) Count 4.5 10x3/uL (4.8-10.8)
[2023-01-12 05:53] LABS: Phosphorus 2.5 mg/dL (2.3-4.7)
[2023-01-12 05:57] LABS: ALT (SGPT) 10 U/L (8-55); AST (SGOT) 13 U/L (5-34); Albumin 3.4 g/dL (3.4-4.8); Alkaline Phosphatase 58 U/L (40-110); Anion Gap 11 mmol/L (10-20); BUN (Urea Nitrogen) 6 mg/dL (9.8-20.1); Bilirubin, Total 0.4 mg/dL (0.2-1.2); Calc. Creatinine Clearance 156 mL/min (70-130); Calcium 8.6 mg/dL (7.8-10.44); Carbon Dioxide 22 mmol/L (23-31); Cardiac Risk 3.2 (Less than 4.5); Chloride 109 mmol/L (98-107); Cholesterol 159 mg/dl (< 200 Desired); Estimated GFR 93; Globulin 2.6 g/dL (2.4-3.5); Glucose 94 mg/dL (80-115); HDL Cholesterol 50 mg/dL (>60 Neg Risk); LDL Cholesterol, Calculated 97 mg/dL; Magnesium 1.6 mg/dL (1.6-2.6); Potassium 3.4 mmol/L (3.5-5.1); Sodium 139 mmol/L (136-145); Triglycerides 59 mg/dL (Less than 150)
[2023-01-12] MEDS ORDERED: Electrolyte Replacement Protocol 1 EACH FS SCH (07:48)
[2023-01-12] MEDS ORDERED: Potassium Chloride 20 MEQ TAB PO SCH (08:00)
[2023-01-12] MEDS ORDERED: Magnesium 2 GM/50 ML(in water) 2 GM in Premix Bag 1 BAG IVPB SCH (08:15)
[2023-01-12] MEDS: Aspirin 81 mg Enteric Coated Tablet PO SCH (08:26)
[2023-01-12] MEDS: Clopidogrel Bisulfate 75 MG TAB PO SCH (08:30)
[2023-01-12] MEDS ORDERED: Lisinopril 20 MG TAB PO SCH (09:00)
[2023-01-12] MEDS ORDERED: Aspirin 81 mg Enteric Coated Tablet PO SCH (09:00)
[2023-01-12] MEDS: cefTRIAXone\\ROCEPHIN 2 GM in Sodium Chloride 0.9% 100 ML IVPB SCH (16:13)
[2023-01-12 20:01] VITALS: TEMP 98.1
[2023-01-12] MEDS: Atorvastatin Calcium 40 MG TAB PO SCH (20:46)
[2023-01-13 05:35] LABS: #Eosinphils 0.1 thou/uL (0.0-0.7); #Lymphocytes 1.6 thou/uL (1.20-3.40); #Monocytes 0.3 thou/uL (0.11-0.59); #Neutrophils 1.9 thou/uL (1.40-6.50); %Basophils 0.6 % (0.0-1.0); %Eosinophils 2.8 % (0.0-10.0); %Lymphocytes 41.1 % (21.0-51.0); %Neutrophils 48.5 % (42.0-75.0); Hemoglobin 12.2 g/dL (12.0-16.0); Mean Corpuscular Hemoglobin 30.7 pg (27.0-31.0); Mean Corpuscular Volume 92.9 fl (78.0-98.0); Mean Platelet Volume 7.8 fL (7.4-10.4); Platelet Count 201 10x3/uL (130-400); RBC Distribution Width 13.4 % (11.5-14.5); Red Blood Cell (RBC) Count 3.99 mill/uL (4.20-5.40); White Blood Cell (WBC) Count 3.9 10x3/uL (4.8-10.8)
[2023-01-13 05:55] LABS: Anion Gap 13 mmol/L (10-20); BUN (Urea Nitrogen) 7 mg/dL (9.8-20.1); Calc. Creatinine Clearance 152 mL/min (70-130); Calcium 8.9 mg/dL (7.8-10.44); Carbon Dioxide 21 mmol/L (23-31); Chloride 109 mmol/L (98-107); Estimated GFR 90; Glucose 100 mg/dL (80-115); Potassium 3.8 mmol/L (3.5-5.1); Sodium 139 mmol/L (136-145)
[2023-01-13 08:00] VITALS: BP 154/89
[2023-01-13] MEDS ORDERED: Lisinopril 20 MG TAB PO SCH (09:00)
[2023-01-13] MEDS ORDERED: Folic Acid 1 MG TAB PO SCH (09:00)
[2023-01-13 09:31] LABS: HIV (1/2) Antibody/Antigen Non-Reactive (NonReactive); HIV 1/2 INDEX 0.31 S/CO (<1.00)
[2023-01-13 09:37] LABS: Vitamin B12 291 pg/mL (211-911)
[2023-01-13] MEDS: Clopidogrel Bisulfate 75 MG TAB PO SCH (09:38)
[2023-01-13] MEDS: Aspirin 81 mg Enteric Coated Tablet PO SCH (09:38)
[2023-01-13] MEDS ORDERED: Doxycycline 100 MG in Sodium Chloride 0.9% 100 ML IVPB SCH (21:00)
[2023-01-14] MEDS ORDERED: Azithromycin 250 MG TAB PO SCH (09:00)
[2023-01-14] MEDS ORDERED: Cyanocobalamin (Vitamin B-12) 1,000 MCG TAB PO SCH (09:00)
[2023-01-14] MEDS ORDERED: FLU VACC QS2022-23(65YR UP)/PF 240 MCG/0.7 ML SYRINGE IM ONE (09:00)
[2023-01-14 13:05] LABS: Chlam.trachomatis by PCR,Urine Not Detected (NotDetected); GC N.gonorrhoeae PCR,UrineVOID Not Detected (NotDetected)
== END 2023-01-13 12:29 | disposition home or self-care (01) | DRG 69 ==
LOC: SUATTDRO 17:13 → ERS 17:13 → ERHOLD 22:20 → MSONC 01-11 00:15 → OBSVTOIN 01-12 13:24
PROVIDERS: ADMIT Family Medicine; ATTEND Internal Medicine
PROC: 4A033R1 Measurement of Arterial Saturation, Peripheral, Percutaneous Approach (ICD-10-PCS; principal; 2023-01-10)
DX: G45.9 Transient cerebral ischemic attack, unspecified (principal); N39.0 Urinary tract infection, site not specified; F14.921 Cocaine use, unspecified with intoxication delirium; R47.01 Aphasia; Z68.42 Body mass index [BMI] 45.0-49.9, adult; Z20.822 Contact with and (suspected) exposure to COVID-19; F15.10 Other stimulant abuse, uncomplicated; E87.6 Hypokalemia; I10 Essential (primary) hypertension; E78.5 Hyperlipidemia, unspecified; R91.1 Solitary pulmonary nodule; F17.210 Nicotine dependence, cigarettes, uncomplicated; F32.A Depression, unspecified; E66.01 Morbid (severe) obesity due to excess calories; M15.8 Other polyosteoarthritis; D64.9 Anemia, unspecified; R47.1 Dysarthria and anarthria; Z87.01 Personal history of pneumonia (recurrent); Z79.82 Long term (current) use of aspirin; Z79.899 Other long term (current) drug therapy; Z79.02 Long term (current) use of antithrombotics/antiplatelets; Z86.73 Personal history of transient ischemic attack (TIA), and cerebral infarction without residual deficits; Z90.710 Acquired absence of both cervix and uterus; Z96.653 Presence of artificial knee joint, bilateral
CPT/HCPCS: 36415; 36416; 51701; 70450; 70551; 71045; 80048; 80053; 80061; 80306; 80307; 81003; 81015; 82607; 82805; 83605; 83735; 84100; 84145; 84484; 85025; 87040; 87077; 87086; 87186; 87389; 87491; 87591; 93005; 93306; 93880; 95712; 95819; 95957; 96361; 96372; 96374; 96375; G0378; J0696; J1650; J3475; J3480; J3490; U0002